=== PATIENT | female | born 1950 | race Caucasian/White ===

== ENCOUNTER 2020-09-17 11:20 | Outpatient (REF) | payer MEDICARE, OTHER, SELFPAY | END 2020-09-17 11:21 | disposition home or self-care (01) | LOC: HO.LAB 11:20 | PROVIDERS: Visit Provider Internal Medicine | DX: Z20.822 Contact with and (suspected) exposure to COVID-19 (principal) | CPT/HCPCS: 36415; C9803; U0003; U0005 ==